=== PATIENT | female | born 1995 | race Caucasian/White ===

== ENCOUNTER 2017-01-30 17:06 | Emergency (ER) | payer OTHER | END 2017-01-30 17:45 | disposition home or self-care (01) | LOC: BURERS 17:06 | DX: J02.9 Acute pharyngitis, unspecified (principal) | CPT/HCPCS: 99282 ==

== ENCOUNTER 2017-02-09 21:34 | Emergency (ER) | payer OTHER ==
[2017-02-09] MEDS ORDERED: Prochlorperazine 10 MG/2 ML VIAL ONE (22:08)
[2017-02-09] MEDS ORDERED: diphenhydrAMINE HCl 50 MG/ML 1 ML VIAL ONE (22:08)
[2017-02-09] MEDS ORDERED: Ketorolac Tromethamine 30 MG/ML VIAL ONE (22:08)
== END 2017-02-09 22:57 | disposition home or self-care (01) ==
LOC: BURERS 21:34
DX: G43.909 Migraine, unspecified, not intractable, without status migrainosus (principal)
CPT/HCPCS: 96361; 96374; 96375; J0780; J1200; J1885

== ENCOUNTER 2017-03-04 21:39 | Emergency (ER) | payer OTHER ==
[2017-03-04] MEDS ORDERED: Ketorolac Tromethamine 60 MG/2 ML VIAL ONE (21:57)
[2017-03-04] MEDS ORDERED: Cyclobenzaprine 10 MG TAB ONE (21:57)
== END 2017-03-04 22:40 | disposition home or self-care (01) ==
LOC: BURERS 21:39
DX: M54.5 Low back pain (principal)
CPT/HCPCS: 96372; J1885

== ENCOUNTER 2017-10-14 19:00 | Emergency (ER) | payer OTHER ==
[2017-10-14] MEDS ORDERED: Amoxicillin/Potassium Clav 875 MG TAB ONE (19:17)
== END 2017-10-14 19:24 | disposition home or self-care (01) ==
LOC: BURERS 19:00
DX: H66.92 Otitis media, unspecified, left ear (principal)
CPT/HCPCS: 99282

== ENCOUNTER 2021-10-16 19:44 | Emergency (ER) | payer BC, OTHER ==
[2021-10-16] MEDS ORDERED: Ibuprofen 800 MG TAB ONE (20:05)
== END 2021-10-16 20:13 | disposition home or self-care (01) ==
LOC: BURERS 19:44
DX: S80.12XA Contusion of left lower leg, initial encounter (principal); G44.209 Tension-type headache, unspecified, not intractable; V43.93XA Unspecified car occupant injured in collision with pick-up truck in traffic accident, initial encounter
CPT/HCPCS: 99283

== ENCOUNTER 2021-11-21 20:19 | Emergency (ER) | payer BC, OTHER ==
[2021-11-21] MEDS ORDERED: Bacitracin 1 PK ONE (20:44)
[2021-11-21] MEDS ORDERED: TETANUS, DIPHTHERIA TOX,ADULT (TDVAX) 0.5 ML VIAL IM ONE (20:44)
[2021-11-21] MEDS ORDERED: Cephalexin 250 MG CAP ONE (20:44)
== END 2021-11-21 20:45 | disposition home or self-care (01) ==
LOC: BURERS 20:19
DX: T18.128A Food in esophagus causing other injury, initial encounter (principal)
CPT/HCPCS: 90714; 99281